=== PATIENT | female | born 1945 | race Caucasian/White ===

== ENCOUNTER 2021-12-12 07:32 | Inpatient (IN) ==
[2021-12-12] MEDS ORDERED: Senna TAB 8.6 mg TAB PO PRN (12:35)
[2021-12-12] MEDS ORDERED: Ondansetron ODT 4 mg TAB 4 MG TAB PO PRN (12:39)
[2021-12-12] MEDS ORDERED: Pancrelipase 5,000 units CAP PO SCH (16:30)
[2021-12-13] MEDS: Pancrelipase 5,000 units CAP PO SCH ×3 (09:18→17:00)
[2021-12-13] MEDS: Enoxaparin 40 MG/0.4 ML SYR SUBCUT SCH (10:01)
[2021-12-13] MEDS: Cholestyramine Resin 4 GM POWDER PO SCH (10:03)
[2021-12-13] MEDS ORDERED: Magnesium Hydroxide LIQ 30 ML UDC PO PRN (19:32)
[2021-12-14 07:02] LABS: ABS Eosinophils 0.2 10^3/ul (0-0.6); ABS Lymphocytes 2.1 10^3/ul (1.0-4.8); ABS Monocytes 0.6 10^3/ul (0-0.8); ABS Neutrophils 6.7 10^3/ul (1.5-7.7); Eosinophil % 1.7 %; Hematocrit 30 % (35-47); Hemoglobin 10.2 g/dL (12.0-16.0); Lymphocyte % 21.9 %; Mean Corpuscular HGB Conc 34 g/dL (31-36); Mean Corpuscular Hemoglobin 29 pg (27-31); Mean Corpuscular Volume 87 fL (80-97); Platelet Count 395 10^3/uL (150-450); Red Cell Distribution Width 15 % (10-15); White Blood Count 9.7 10^3/uL (3.5-10.8)
[2021-12-14 07:44] LABS: Albumin 2.4 g/dL (3.2-5.2); Albumin/Globulin Ratio 0.8 (1-3); Calcium 7.9 mg/dL (8.6-10.3); Globulin 2.9 g/dL (2-4); Potassium 4.3 mmol/L (3.5-5.0); Total Bilirubin 0.3 mg/dL (0.2-1.0); Total Protein 5.3 g/dL (6.4-8.9); eGFR CKD-EPI 93.8 (>60)
[2021-12-14] MEDS: Pancrelipase 5,000 units CAP PO SCH ×4 (09:17→16:53)
[2021-12-14] MEDS: Enoxaparin 40 MG/0.4 ML SYR SUBCUT SCH (10:01)
[2021-12-14] MEDS: Cholestyramine Resin 4 GM POWDER PO SCH (10:05)
[2021-12-14] MEDS: CALCIUM POLYCARBOPHIL 625 MG PO PRN (23:16)
[2021-12-15] MEDS: Pancrelipase 5,000 units CAP PO SCH ×3 (09:35→16:36)
[2021-12-15] MEDS: Enoxaparin 40 MG/0.4 ML SYR SUBCUT SCH (10:26)
[2021-12-15] MEDS: Cholestyramine Resin 4 GM POWDER PO SCH (10:40)
[2021-12-15] MEDS ORDERED: Ondansetron 4 mg VIAL 2 MG/ML 2 ml VIAL IV PRN (11:14)
[2021-12-15] MEDS ORDERED: Famotidine IV 10 MG/ML 2 ml VIAL (20 mg) IV SLOW PU PRN (11:15)
[2021-12-15] MEDS: NS 0.9% 1000 ml BAG 1,000 ML IV SCH (14:16)
[2021-12-15] MEDS: CALCIUM POLYCARBOPHIL 625 MG PO PRN (17:37)
[2021-12-16] MEDS: NS 0.9% 1000 ml BAG 1,000 ML IV SCH (04:09)
[2021-12-16] MEDS: Pancrelipase 5,000 units CAP PO SCH ×3 (09:36→16:43)
[2021-12-16] MEDS: Enoxaparin 40 MG/0.4 ML SYR SUBCUT SCH (10:20)
[2021-12-16] MEDS: Cholestyramine Resin 4 GM POWDER PO SCH (11:04)
[2021-12-16 14:12] LABS: Urine Appearance Turbid; Urine Bilirubin Negative (Negative); Urine Blood 3+ (Negative); Urine Color Yellow; Urine Glucose Negative (Negative); Urine Ketones 1+ (Negative); Urine Nitrite Positive (Negative); Urine Protein 1+(30 mg/dL) (Negative); Urine Specific Gravity 1.009 (1.002-1.030); Urine Urobilinogen Negative (Negative)
[2021-12-16 14:41] LABS: Urine Bacteria 3+ (Absent); Urine Red Blood Cell 3+(>10/hpf) (Absent); Urine Squamous Epithelial Cell Present (Absent); Urine White Blood Cell 3+(>20/hpf) (Absent)
[2021-12-16] MEDS: cefTRIAXone 1 gm/50 mL D5W 1 GM/50 ML BAG IV SCH (15:24)
[2021-12-16] MEDS: CALCIUM POLYCARBOPHIL 625 MG PO PRN (17:45)
[2021-12-17] MEDS: Pancrelipase 5,000 units CAP PO SCH ×5 (07:44→17:06)
[2021-12-17] MEDS: Enoxaparin 40 MG/0.4 ML SYR SUBCUT SCH (08:39)
[2021-12-17] MEDS: Cholestyramine Resin 4 GM POWDER PO SCH (08:52)
[2021-12-17] MEDS: CALCIUM POLYCARBOPHIL 625 MG PO PRN (12:39)
[2021-12-17] MEDS: cefTRIAXone 1 gm/50 mL D5W 1 GM/50 ML BAG IV SCH (15:34)
[2021-12-18] MEDS: Cholestyramine Resin 4 GM POWDER PO SCH (13:16)
[2021-12-18] MEDS: Pancrelipase 5,000 units CAP PO SCH ×3 (13:16→17:46)
[2021-12-18] MEDS: Enoxaparin 40 MG/0.4 ML SYR SUBCUT SCH (14:19)
[2021-12-18] MEDS: cefTRIAXone 1 gm/50 mL D5W 1 GM/50 ML BAG IV SCH (16:07)
[2021-12-19] MEDS: Pancrelipase 5,000 units CAP PO SCH ×2 (08:13→12:03)
[2021-12-19] MEDS ORDERED: Amoxicillin/Clavul 500/125 TAB (Augmentin 500 mg tab) PO SCH (09:00)
[2021-12-19] MEDS: Enoxaparin 40 MG/0.4 ML SYR SUBCUT SCH (10:08)
[2021-12-19] MEDS: Cholestyramine Resin 4 GM POWDER PO SCH (10:08)
[2021-12-19 11:29] VITALS: BP 152/74
== END 2021-12-19 13:50 | disposition home health service (06) | DRG 949 ==
LOC: PMRU 11:57
PROVIDERS: ADMIT Physical Medicine & Rehabilitation; ATTEND Physical Medicine & Rehabilitation